=== PATIENT | female | born 1950 | race Caucasian/White ===

== ENCOUNTER 2019-06-22 12:59 | Outpatient (CLI) | payer MEDICARE ==
[~2019-06-22] VITALS: Ht 167.6 cm; Wt 65.0 kg
[2019-06-22 13:35] VITALS: BP 134/63; Ht 167.6 cm; Wt 65.0 kg
--- NOTE | 2019-06-22 13:48 | NUR ---
1343 PT DENIES ANY ITCHING AFTER RECEIVING PROLIA INJECTION. NO RASH NOTED AROUND INJECTION SITE. PT STATES SHE IS READY TO GO HOME.
== END 2019-06-22 13:45 | disposition home or self-care (01) ==
LOC: D.OPS 12:59
PROVIDERS: ATTEND Family Medicine
DX: M81.0 Age-related osteoporosis without current pathological fracture (principal)